=== PATIENT | male | born 1960 | race Two or more races ===

== ENCOUNTER 2019-08-20 10:45 | Outpatient (CLI) | payer OTHER | END 2019-08-20 23:59 | disposition home or self-care (01) | LOC: COV 10:45 | PROVIDERS: ATTEND Family Medicine | DX: Z11.59 Encounter for screening for other viral diseases (principal) ==

== ENCOUNTER 2020-11-11 07:10 | Outpatient (CLI) | payer OTHER ==
[2020-11-11 15:11] LABS: BASOPHILS # (AUTO) 0.1 10^3/uL (0.0-0.1); EOSINOPHILS # (AUTO) 0.2 10^3/uL (0.0-0.7); EOSINOPHILS % (AUTO) 3.4 %; HCT - HEMATOCRIT 45.4 % (42.0-52.0); HGB - HEMOGLOBIN 14.9 g/dL (14.0-18.0); LYMPHOCYTES # (AUTO) 1.9 10^3/uL (1.5-3.5); LYMPHOCYTES % (AUTO) 31.4 %; MEAN CORPUSCULAR HEMOGLOBIN 30.2 pg (27.0-31.0); MEAN CORPUSCULAR HGB CONC 32.8 g/dL (32.0-36.0); MEAN CORPUSCULAR VOLUME 92.1 fL (80.0-94.0); MEAN PLATELET VOLUME 9.8 fL (7.4-11.4); MONOCYTES # (AUTO) 0.6 10^3/uL (0.0-1.0); NEUTROPHILS # (AUTO) 3.3 10^3/uL (1.5-6.6); NEUTROPHILS % (AUTO) 53.7 %; PLT - PLATELET COUNT 225 10^3/uL (130-450); RED BLOOD COUNT 4.93 10^6/uL (4.70-6.10); RED CELL DISTRIBUTION WIDTH 12.9 % (12.0-15.0); WHITE BLOOD COUNT 6.1 x10^3/uL (4.8-10.8)
[2020-11-11 15:44] LABS: ALBUMIN/GLOBULIN RATIO 1.4 (1.0-2.2); ALKALINE PHOSPHATASE 120 IU/L (42-121); ALT ALANINE AMINOTRANSFERASE 81 IU/L (10-60); AST ASPARTATE AMINOTRANSFERASE 53 IU/L (10-42); BILIRUBIN,TOTAL 0.7 mg/dL (0.2-1.0); BUN - BLOOD UREA NITROGEN 18 mg/dL (6-20); CALCIUM 8.7 mg/dL (8.5-10.3); CARBON DIOXIDE - CO2 25 mmol/L (21-32); CHLORIDE 108 mmol/L (101-111); CHOL/HDL RATIO 7.2 (<5.0); CHOLESTEROL 251 mg/dL; CREATININE 0.8 mg/dL (0.6-1.2); GFR - MDRD 98 (>89); GLUCOSE 130 mg/dL (70-100); HDL CHOLESTEROL 35 mg/dL; LDL CHOLESTEROL,CALCULATED 183 mg/dL; LDL/HDL RATIO 5.2 (<3.6); POTASSIUM 3.8 mmol/L (3.5-5.0); SODIUM 141 mmol/L (135-145); TOTAL PROTEIN 6.8 g/dL (6.7-8.2); TRIGLYCERIDES 163 mg/dL; URIC ACID 8.5 mg/dL (2.6-7.2); VLDL CHOLESTEROL 33 mg/dL
== END 2020-11-11 07:11 | disposition home or self-care (01) ==
LOC: LAB.S 07:10
PROVIDERS: ATTEND Internal Medicine
DX: R03.0 Elevated blood-pressure reading, without diagnosis of hypertension (principal); E78.5 Hyperlipidemia, unspecified; Z12.5 Encounter for screening for malignant neoplasm of prostate; M25.50 Pain in unspecified joint
CPT/HCPCS: 36415; 80053; 80061; 83721; 84153; 84550; 85025

== ENCOUNTER 2020-12-03 12:28 | Outpatient (CLI) | payer OTHER ==
[2020-12-03 16:53] LABS: BF CLARITY CLOUDY; BF COLOR RED
[2020-12-03 16:55] LABS: BF SOURCE JOINT; CC,BF RBC 66000 /mm^3; CC,BF WBC 146 /mm^3
[2020-12-03 20:02] LABS: EOSINOPHILS %,BODY FLUID 2 %; LYMPHOCYTES %,BODY FLUID 44 %; MONOCYTES %,BODY FLUID 21 %; NEUTROPHILS %, BF 33 %
[2020-12-03 20:03] LABS: MESOTHELIAL %, BF 0 %
== END 2020-12-03 12:29 | disposition home or self-care (01) ==
LOC: LAB.S 12:28
PROVIDERS: ATTEND Emergency Medicine
DX: M70.21 Olecranon bursitis, right elbow (principal)
CPT/HCPCS: 87070; 87205; 89051

== ENCOUNTER 2021-01-18 08:00 | Outpatient (CLI) | payer OTHER ==
--- NOTE | 2021-01-18 09:10 | XRAY Report ---
PROCEDURE: Elbow 3 View RT INDICATIONS: RIGHT OLECRANON BURSITIS TECHNIQUE: 3 views of the elbow were acquired. COMPARISON: None. FINDINGS: BONES/JOINT: No acute, displaced fracture or dislocation. No appreciable joint effusion. SOFT TISSUES: Soft tissue prominence overlying the olecranon, compatible with bursitis. IMPRESSION: 1.Findings most consistent with olecranon bursitis as detailed above. Reviewed by: Amauri Romero MD on 01/18/2021 9:09 AM [facility] Approved by: Amauri Romero MD on 01/18/2021 9:09 AM [facility] Station ID: [id number]
== END 2021-01-18 23:59 | disposition home or self-care (01) ==
LOC: DI.N 08:00
PROVIDERS: ATTEND Orthopaedic Surgery
DX: M70.21 Olecranon bursitis, right elbow (principal)

== ENCOUNTER 2021-03-12 06:18 | Day surgery (SDC) | payer OTHER ==
[2021-03-12] MEDS ORDERED: LACTATED RINGERS 1,000 ML IV ONE (06:50)
[2021-03-12] MEDS ORDERED: MIDAZOLAM 2 MG/2 ML VIAL ONE (07:00)
[2021-03-12] MEDS ORDERED: PROPOFOL 500 MG/50 ML 500 MG/50 ML VIAL ONE (07:00)
--- NOTE | 2021-03-12 07:11 | ANESTHESIA ---
Pre-Anesthesia VS, & Labs - Diagnosis history of colon polyps - Procedure colonoscopy Vital Signs: Temp Pulse Resp BP Pulse Ox 36.6 C 67 16 147/100 H 96 03/12/21 06:30 03/12/21 06:30 03/12/21 06:30 03/12/21 06:30 03/12/21 06:30 Height: 5 ft 7 in Weight (kg): 93.2 kg Body Mass Index: 32.1 BMI Classification: Obese - NPO >8 hours - Lab Results Current Lab Results: Laboratory Tests 03/12/21 06:41: POC Whole Bld Glucose 104 H Home Medications and Allergies Home Medications: Ambulatory Orders No Known Home Medications 03/12/21 No Known Home Medications 03/12/21 Allergies/Adverse Reactions: Allergies Allergy/AdvReac Type Severity Reaction Status Date / Time azithromycin [From Zithromax] AdvReac Unknown Verified 03/12/21 06:51 Anes History & Medical History - Anesthetic History Family history of Anesthesia Complications: Denies Family history of Malignant Hyperthermia: Denies - Medical History Cardiovascular: reports: High cholesterol Pulmonary: reports: None, Other (snore) Gastrointestinal: reports: Colon polyps Urinary: reports: None Neuro: reports: None Musculoskeletal: reports: None Endocrine/Autoimmune: reports: None Blood Disorders: reports: None Skin: reports: None Smoking Status: Never smoker Psychosocial: reports: Alcohol (wine near daily) History of Cancer?: No - Surgical History General: reports: Colonoscopy Exam General: Alert, Oriented x3, Cooperative, No acute distress Dental: WNL Mouth Openin Fingerbreadth Neck Mobility: Normal Mallampati classification: III Thyromental Distance: 4-6 cm Mental/Cognitive Status: Alert/Oriented X3, Normal for patient Plan Anesthesia Type: General, Total IV Consent for Procedure(s) Verified and Reviewed: Yes Code Status: Attempt Resuscitation ASA classification: 2-Mild systemic disease Is this case an emergency?: No
[2021-03-12] MEDS ORDERED: GLYCOPYRROLATE 1 MG/5 ML VIAL ONE (07:40)
[2021-03-12] MEDS ORDERED: ePHEDrine 50 MG/ML VIAL IVP ONE (07:45)
[2021-03-12] MEDS ORDERED: LACTATED RINGERS 500 ML IV ONE (08:00)
--- NOTE | 2021-03-12 08:03 | OPERATIVE REPORT ---
Operative Report - General Procedure Date: 03/12/21 Planned Procedure: colonoscopy Pre-Op Diagnosis: history adenomatous polyps colon Procedure Performed: colonoscopy with cold forcep polypectomy x 3 Post Op Diagnosis: two 3 mm colon polyps ascending colon and 3 mm polyp descending colon - Procedure Note Primary Surgeon: vicki shearer Anesthesia Technique: MAC Pathology: polyps sent Estimated Blood Loss (mL): 0 Indications: history adenomatous polyps/ surveillance Findings: as above otherwise normal colon Complications: none - Other Other Information/Narrative: The patient was properly identified brought to the endoscopy suite. Monitored anesthesia care was given. Digital rectal examination normal. The scope was easily placed into the cecum and into the terminal ileum. The scope was slowly withdrawn. 2 3 8 mm ascending colon polyps were removed with cold forcep. An additional 3 mm polyp was removed from the descending colon with cold forcep. Retroflexion examination of the rectum was normal. Colonoscopy was otherwise normal. Prep was excellent.
--- NOTE | 2021-03-12 08:20 | HISTORY & PHYSICAL EXAMINATION ---
Chief Complaint - Chief Complaint Chief Complaint: history colon polyps History of Present Illness - History Obtained From Records Reviewed: yes History obtained from: pt Exam Limitations: none - History of Present Illness HPI Comment/Other: History colonoscopy 6 months ago. Flat polyp with dysplasia removed piecemeal at that time. Here for surveillance. History - Past Medical History Cardiovascular: reports: High cholesterol Respiratory: reports: None, Other (snore) Neuro: reports: None Endocrine/Autoimmune: reports: None GI: reports: Colon polyps : reports: None HEENT: reports: None Psych: reports: None Musculoskeletal: reports: None Derm: reports: None MRSA Hx?: No - Past Surgical History General: reports: Colonoscopy Meds/Allgy - Home Medications Home Medications: Ambulatory Orders Medication Instructions Recorded Confirmed No Known Home Medications 03/12/21 03/12/21 - Allergies Allergies/Adverse Reactions: Allergies Allergy/AdvReac Type Severity Reaction Status Date / Time azithromycin [From Zithromax] AdvReac Unknown Verified 03/12/21 06:51 Review of Systems - Other Findings Other Findings: 10 pt ros as above otherwise unremarkable Exam - Vital Signs Reviewed Vital Signs: Yes Vital Signs: Vital Signs x48h Temp Pulse Resp BP Pulse Ox 03/12/21 08:15 77 16 126/85 H 96 03/12/21 08:11 67 18 107/70 95 03/12/21 08:05 77 20 112/61 95 03/12/21 08:00 36.5 C 78 20 119/67 96 03/12/21 06:30 36.6 C 67 16 147/100 H 96 - Physical Exam General Appearance: positive: No acute distress, Alert Eyes Bilateral: positive: PERRL, EOMI, No scleral icterus ENT: positive: No signs of dehydration Neck: positive: No JVD Respiratory: positive: No respiratory distress, Breath sounds nml Cardiovascular: positive: Regular rate & rhythm Abdomen: positive: Non-tender, No distention Neurologic/Psychiatric: positive: Oriented x3 Conclusion/Plan - Problem List (1) History of adenomatous polyp of colon Conclusion/Plan: plan sigmoidoscopy/ surveillance piecemeal resection adenomatous polyp with dysplasia at 10 cm. parq held and consent obtained
[2021-03-12 08:28] VITALS: BP 136/90
--- NOTE | 2021-03-12 10:45 | ANESTHESIA POST OP EVALUATION ---
Anesthesia Post Eval - Post Anesthesia Eval Vitals: Last Vital Signs Temp 36.5 C 03/12/21 08:27 Pulse 73 03/12/21 08:27 Resp 16 03/12/21 08:27 BP 136/90 H 03/12/21 08:27 Pulse Ox 98 03/12/21 08:27 CV Function Including HR & BP: Stable Pain Control: Satisfactory Nausea & Vomiting: Negative Mental Status: Baseline Respiratory Status: Airway Patent Hydration Status: Satisfactory Anesthesia Complications: None
== END 2021-03-12 06:19 | disposition home or self-care (01) ==
LOC: SDS 06:18
PROVIDERS: ATTEND Surgery
PROC: 0DBM8ZX Excision of Descending Colon, Via Natural or Artificial Opening Endoscopic, Diagnostic (ICD-10-PCS; 2021-03-12)
PROC: 0DBK8ZZ Excision of Ascending Colon, Via Natural or Artificial Opening Endoscopic (ICD-10-PCS; principal; 2021-03-12 07:30)
DX: Z12.11 Encounter for screening for malignant neoplasm of colon (principal); D12.2 Benign neoplasm of ascending colon; K63.5 Polyp of colon; E66.9 Obesity, unspecified; Z68.32 Body mass index [BMI] 32.0-32.9, adult
CPT/HCPCS: 45380; J7120

== ENCOUNTER 2021-11-03 15:01 | Outpatient (CLI) | payer OTHER ==
--- NOTE | 2021-11-04 21:04 | XRAY Report ---
PROCEDURE: Foot 3 View RT INDICATIONS: RIGHT FOOT PAIN TECHNIQUE: 3 views of the foot were acquired. COMPARISON: None. FINDINGS: Mild hallux valgus deformity. Moderate to severe osteoarthritis of the 1st MTP characterized by joint space narrowing with small marginal osteophytes as well as subchondral sclerosis and subchondral cys tic change. There is also flattening of the articular surfaces. Small MTP joint effusion. 4th and 5th hammertoe deformities. No greater than mild osteophytic changes elsewhere in the foot. 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 Reviewed by: Miguel Angel Cramer MD on 11/04/2021 9:03 PM PDT Approved by: Miguel Angel Cramer MD on 11/04/2021 9:03 PM PDT Station ID: [id number]
== END 2021-11-03 15:02 | disposition home or self-care (01) ==
LOC: DI 15:01
PROVIDERS: ATTEND Podiatrist
DX: M19.071 Primary osteoarthritis, right ankle and foot (principal); M20.11 Hallux valgus (acquired), right foot

== ENCOUNTER 2021-12-06 07:07 | Outpatient (CLI) | payer OTHER ==
[2021-12-06 14:33] LABS: BASOPHILS # (AUTO) 0.1 10^3/uL (0.0-0.1); BASOPHILS % (AUTO) 1.1 %; EOSINOPHILS # (AUTO) 0.2 10^3/uL (0.0-0.7); EOSINOPHILS % (AUTO) 3.2 %; HCT - HEMATOCRIT 49.9 % (42.0-52.0); HGB - HEMOGLOBIN 16.2 g/dL (14.0-18.0); LYMPHOCYTES # (AUTO) 2.1 10^3/uL (1.5-3.5); LYMPHOCYTES % (AUTO) 32.7 %; MEAN CORPUSCULAR HEMOGLOBIN 30.2 pg (27.0-31.0); MEAN CORPUSCULAR HGB CONC 32.5 g/dL (32.0-36.0); MEAN CORPUSCULAR VOLUME 93.1 fL (80.0-94.0); MEAN PLATELET VOLUME 9.9 fL (7.4-11.4); MONOCYTES # (AUTO) 0.7 10^3/uL (0.0-1.0); MONOCYTES % (AUTO) 10.9 %; NEUTROPHILS # (AUTO) 3.2 10^3/uL (1.5-6.6); NEUTROPHILS % (AUTO) 51.8 %; PLT - PLATELET COUNT 226 10^3/uL (130-450); RED BLOOD COUNT 5.36 10^6/uL (4.70-6.10); RED CELL DISTRIBUTION WIDTH 12.9 % (12.0-15.0); WHITE BLOOD COUNT 6.3 x10^3/uL (4.8-10.8)
[2021-12-06 15:14] LABS: THYROID STIMULATING HORMONE 4.05 uIU/mL (0.34-5.60)
[2021-12-06 15:15] LABS: ALBUMIN 4.1 g/dL (3.2-5.5); ALBUMIN/GLOBULIN RATIO 1.2 (1.0-2.2); ALKALINE PHOSPHATASE 106 IU/L (42-121); ALT ALANINE AMINOTRANSFERASE 85 IU/L (10-60); AST ASPARTATE AMINOTRANSFERASE 60 IU/L (10-42); BUN - BLOOD UREA NITROGEN 23 mg/dL (6-20); CALCIUM 9.6 mg/dL (8.5-10.3); CARBON DIOXIDE - CO2 27 mmol/L (21-32); CHLORIDE 105 mmol/L (101-111); CHOL/HDL RATIO 7.1 (<5.0); CHOLESTEROL 278 mg/dL; CREATININE 1.1 mg/dL (0.6-1.2); GFR - MDRD 68 (>89); GLUCOSE 114 mg/dL (70-100); HDL CHOLESTEROL 39 mg/dL; LDL CHOLESTEROL,CALCULATED 203 mg/dL; LDL/HDL RATIO 5.2 (<3.6); POTASSIUM 4.2 mmol/L (3.5-5.0); SODIUM 140 mmol/L (135-145); TOTAL PROTEIN 7.4 g/dL (6.7-8.2); TRIGLYCERIDES 180 mg/dL; VLDL CHOLESTEROL 36 mg/dL
== END 2021-12-06 07:08 | disposition home or self-care (01) ==
LOC: LAB.S 07:07
PROVIDERS: ATTEND Registered Nurse
DX: E78.5 Hyperlipidemia, unspecified (principal); R73.9 Hyperglycemia, unspecified; R74.8 Abnormal levels of other serum enzymes; Z13.9 Encounter for screening, unspecified
CPT/HCPCS: 36415; 80053; 80061; 83721; 84153; 84443; 85025